=== PATIENT | female | born 1990 | race Caucasian/White ===

== ENCOUNTER 2024-02-04 04:56 | Emergency (ER) | payer SELFPAY ==
[~2024-02-04] VITALS: Ht 167.6 cm; Wt 53.0 kg
[2024-02-04 05:08] VITALS: O2SAT 99
[2024-02-04] MEDS: LORAZEPAM 2MG/ML INJ IM ONE (05:35)
[2024-02-04] MEDS: DIPHENHYDRAMINE 50MG/ML VIAL IM STA (05:35)
[2024-02-04] MEDS: HALOPERIDOL LACTATE 5MG/ML VIAL IM STA (05:35)
[2024-02-04 06:12] LABS: CLARITY URINE CLOUDY (CLEAR); COLOR URINE YELLOW (YELLOW); GLUCOSE URINE NEGATIVE (NEGATIVE); KETONES URINE TRACE (NEGATIVE); LEUKOCYTE ESTERASE URINE 2+ (NEGATIVE); NITRITE URINE POSITIVE (NEGATIVE); OCCULT BLOOD URINE NEGATIVE (NEGATIVE); PH URINE 5.5 (4.5-8.0); PROTEIN URINE 1+ (NEGATIVE); SPECIFIC GRAVITY URINE 1.021 (1.005-1.030); UROBILINOGEN URINE 0.2 E.U./dL (0.2-1.0)
[2024-02-04 06:17] LABS: BASOPHILS % 0.3 % (0.0-2.0); HEMATOCRIT. 37.3 % (36.0-48.0); MEAN CORPUSCULAR HEMOGLOBIN 31.6 pg (28.0-32.0); MEAN CORPUSCULAR HGB CONC 34.9 g/dL (31.0-37.0); MEAN CORPUSCULAR VOLUME 90.8 fL (81.0-99.0); MEAN PLATELET VOLUME 8.1 fl (7.4-10.4); MONOCYTES % 8.4 % (2.0-8.0); NEUTROPHILS % 78.3 % (40.0-76.0); PLATELET 241 x1000/uL (130-400); RED BLOOD CELL COUNT 4.11 mill/uL (4.2-5.4); RED CELL DISTRIBUTION WIDTH 13.2 % (11.6-14.6); WHITE BLOOD COUNT 12.8 x1000/uL (4.5-11.0)
[2024-02-04 06:22] LABS: *AMPHETAMINES SCREEN URINE NEGATIVE (NEGATIVE); *BARBITURATES SCREEN URINE NEGATIVE (NEGATIVE); *BENZODIAZEPINES SCREEN URINE NEGATIVE (NEGATIVE); *COCAINE SCREEN URINE NEGATIVE (NEGATIVE); CANNABINOID URINE SCREEN PRESUMPTIVE POSITIVE (NEGATIVE); ECSTASY MDMA SCREEN URINE NEGATIVE (NEGATIVE); METHADONE URINE SCREEN NEGATIVE (NEGATIVE); OPIATES URINE SCREEN NEGATIVE (NEGATIVE); PHENCYCLIDINE URINE SCREEN NEGATIVE (NEGATIVE)
[2024-02-04 06:23] LABS: CHLORIDE 110 mEq/L (98-107); POTASSIUM 3.2 mEq/L (3.5-5.1); SODIUM 142 mEq/L (136-145)
[2024-02-04 06:24] LABS: CALCIUM 9.9 mg/dL (8.7-10.4); CARBON DIOXIDE 20 mEq/L (21-32)
[2024-02-04 06:29] LABS: GLUCOSE 140 mg/dL (70-105); UREA NITROGEN BLOOD 12 mg/dL (9-23)
[2024-02-04 06:31] LABS: ACETAMINOPHEN < 2 ug/mL (10-30); ALANINE AMINOTRANSFERASE 12 IU/L (10-49); ALBUMIN 4.9 g/dL (3.2-4.8); ASPARTATE AMINOTRANSFERASE 24 IU/L (<34)
[2024-02-04 06:32] LABS: BILIRUBIN TOTAL 1.3 mg/dL (0.1-1.0); PROTEIN TOTAL 7.8 g/dL (6.0-8.3)
[2024-02-04 06:49] LABS: HCG SCREEN NEGATIVE
[2024-02-04 07:15] LABS: ETHANOL BLOOD < 10 mg/dL (<10)
[2024-02-04 07:18] LABS: BACTERIA URINE 2+; RBC URINE NONE SEEN /hpf (0-2); SQUAMOUS EPITHELIAL CELL URINE FEW /lpf (RARE/1+); WBC URINE 0-2 /hpf (0-2)
[2024-02-04] MEDS ORDERED: POTASSIUM CHLORIDE 20MEQ TABLET SR PO ONE (12:15)
[2024-02-04] MEDS ORDERED: NITROFURANTOIN 100MG M/M CAPSULE PO SCH (12:30)
[2024-02-04] MEDS: POTASSIUM CHLORIDE 20MEQ TABLET SR PO NR (14:15)
[2024-02-05] MEDS: NITROFURANTOIN 100MG M/M CAPSULE PO SCH (21:13)
[2024-02-05] MEDS: DIPHENHYDRAMINE 50MG/ML VIAL IM ONE (21:14)
[2024-02-05] MEDS: LORAZEPAM 2MG/ML INJ IM ONE (21:15)
[2024-02-05] MEDS: HALOPERIDOL LACTATE 5MG/ML VIAL IM ONE (21:15)
[2024-02-06 06:42] VITALS: BP 131/88; PULSE 104; RESP 20; TEMP 37.00296; O2SAT 100
== END 2024-02-06 17:24 ==
LOC: ER 04:56
DX: R46.2 Strange and inexplicable behavior (principal); N39.0 Urinary tract infection, site not specified; E87.6 Hypokalemia; Z20.822 Contact with and (suspected) exposure to COVID-19
CPT/HCPCS: 80053; 80305; 81003; 80307; 80329; 80320; 84703; 85025; 36415; 96372 ×2; 99285; 87426; J1200; J1630; J2060; Z7610; G0480